=== PATIENT | female | born 1945 | race Caucasian/White ===

== ENCOUNTER 2017-07-03 11:19 | Emergency (ER) | payer MEDICARE, BC ==
[~2017-07-03] VITALS: Ht 160 cm; Wt 108.9 kg
[~2017-07-03 11:19] MED LIST: BENICAR HCT 401 EAC1 ORAL; BETAPACE80 MG PO; JANUMET 50-5001 EACH ORAL; LANSOPRAZOLE30 MG ORAL; SIMVASTATIN40 MG ORAL; SPIRONOLACTONE25 MG PO; ZOLOFT100 MG ORAL
[2017-07-03] MEDS ORDERED: Ipratropium 0.02% Inh Soln 2.5ml UD HHN ONE (12:30)
--- NOTE | 2017-07-03 12:31 | Emergency Room Report ---
History of Present Illness General Chief Complaint: Upper Respiratory Illness Source: Patient (Gaurav Roche M.D.) Present Illness HPI 71-year-old female with history of hypertension, long history of exposure to smoke however herself with an active smoker,, p/w SOB and cough for 5 days. SOB occurs both at rest and on exertion. + productive cough with sputum, yellow , denies chest pain. Patient does not have nebulizer at home. No recent steroid use. Denies fever, chills. Denies sick contacts or recent travel. (Gaurav Roche M.D.) Allergies: Coded Allergies: CODEINE (Verified Allergy, Unknown, 07/03/17) Patient History Past Medical History: see triage record Past Surgical History: none Pertinent Family History: none Reviewed Nursing Documentation: PMH: Agreed, PSxH: Agreed (Gaurav Roche M.D. ) Nursing Documentation-PMH Past Medical History: No History, Except For Hx Cardiac Problems: Yes - fibromyalgia, ablation due to A-fib Hx Hypertension: Yes Hx Pacemaker: No Hx Asthma: No Hx COPD: No Hx Diabetes: Yes Hx Cancer: No Hx Gastrointestinal Problems: Yes - GERD Hx Dialysis: No History Of Psychiatric Problem: No Hx Neurological Problems: No Hx Cerebrovascular Accident: No Hx Seizures: No (Gaurav Roche M.D.) Review of Systems All Other Systems: negative except mentioned in HPI (Gaurav Roche M.D.) Physical Exam Vital Signs Date Time Temp Pulse Resp B/P (MAP) Pulse Ox O2 Delivery O2 Flow Rate FiO2 07/03/17 11:24 98.4 69 20 116/70 99 Room Air Sp02 EP Interpretation: reviewed, normal General Appearance: alert, GCS 15, moderate distress, other - sob but speaking in complete sentences Head: normocephalic, atraumatic Eyes: bilateral eye normal inspection, bilateral eye PERRL, bilateral eye EOMI ENT: normal ENT inspection, normal pharynx, normal voice, moist mucus membranes Neck: normal inspection, full range of motion, supple Respiratory: other - expiratory wheezing b/l Cardiovascular #1: normal inspection, regular rate, rhythm, normal capillary refill Cardiovascular #2: 2+ radial (R), 2+ radial (L) Gastrointestinal: normal inspection, non tender, soft, non-distended, no guarding Musculoskeletal: normal inspection, back normal, normal range of motion, non- tender Neurologic: normal inspection, alert, oriented x3, responsive, motor strength/ tone normal, sensory intact, normal gait, speech normal Psychiatric: normal inspection, judgement/insight normal, memory normal Skin: normal inspection, normal color, no rash, warm/dry, well hydrated, normal turgor (Gaurav Roche M.D.) Medical Decision Making Diagnostic Impression: Primary Impression: Cough Additional Impressions: Pneumonia Wheezing ER Course 71-year-old female with cough and shortness of breath DDX: COPD (undiagnosed but has a history of long smoking exposure), ACS, pneumonia Plan: IV access, monitoring and evaluation advisor, O2 nasal cannula, EKG, CXR obtain basic labs including blood gas, troponin, Duonebs, steroids, antibiotics ER Course: Patient's respiratory status has been closely monitored in the ED. Patient has been treated with combivent x 3, steroids, antibiotics. Repeat lung exam improved CXR possible R sided infiltrate levaquin given patient doing well, ambulating around ED, not sob, able to tolerate PO first trop 0.056 Disposition: Signed out patient to Dr Johnston -pending 2nd trop, if negative DC home -levaquin / albuterol nebulizer / fu with pmd Please note that this Emergency Department Report was dictated using [employer] tile setter technology software, occasionally this can lead to erroneous entry secondary to interpretation by the dictation equipment. . EKG Diagnostic Results EP Interpretation: Yes Rate: normal Rhythm: NSR ST Segments: Incomplete right bundle branch block, T wave inversion in aVL ASA given to patient: No Rhythm Strip EP Interpretation: Yes Rate: 63 Rhythm: NSR, no PVCs, no ectopy Chest X-ray CXR: Ordered: Yes 1 view Indication: Chest pain EP interpretation: Yes Interpretation: Right-sided infiltrate Impression: Right-sided pneumonia Electronically signed by Gaurav Roche MD Laboratory Tests Test 07/03/17 13:33 07/03/17 15:34 White Blood Count 6.9 K/UL (4.8-10.8) Red Blood Count 4.27 M/UL (4.20-5.40) Hemoglobin 12.8 G/DL (12.0-16.0) Hematocrit 40.1 % (37.0-47.0) Mean Corpuscular Volume 94 FL (80-99) Mean Corpuscular Hemoglobin 29.9 PG (27.0-31.0) Mean Corpuscular Hemoglobin Concent 31.8 G/DL (32.0-36.0) L Red Cell Distribution Width 12.6 % (11.6-14.8) Platelet Count 165 K/UL (150-450) Mean Platelet Volume 7.0 FL (6.5-10.1) Neutrophils (%) (Auto) 63.1 % (45.0-75.0) Lymphocytes (%) (Auto) 22.6 % (20.0-45.0) Monocytes (%) (Auto) 9.7 % (1.0-10.0) Eosinophils (%) (Auto) 3.7 % (0.0-3.0) H Basophils (%) (Auto) 0.9 % (0.0-2.0) Urine Color Pale yellow Urine Appearance Clear Urine pH 6 (4.5-8.0) Urine Specific [place] 1.015 (1.005-1.035) Urine Protein Negative (NEGATIVE) Urine Glucose (UA) Negative (NEGATIVE) Urine Ketones Negative (NEGATIVE) Urine Occult Blood Negative (NEGATIVE) Urine Nitrite Negative (NEGATIVE) Urine Bilirubin Negative (NEGATIVE) Urine Urobilinogen Normal MG/DL (0.0-1.0) Urine Leukocyte Esterase Negative (NEGATIVE) Sodium Level 138 MMOL/L (136-145) Potassium Level 4.0 MMOL/L (3.5-5.1) Chloride Level 101 MMOL/L (98-107) Carbon Dioxide Level 27 MMOL/L (21-32) Anion Gap 10 mmol/L (5-15) Blood Urea Nitrogen 13 mg/dL (7-18) Creatinine 0.6 MG/DL (0.55-1.30) Estimate Glomerular Filtration Rate mL/min (>60) Glucose Level 150 MG/DL (74-106) H Calcium Level 8.8 MG/DL (8.5-10.1) Total Bilirubin 0.4 MG/DL (0.2-1.0) Aspartate Amino Transferase (AST) 20 U/L (15-37) Alanine Aminotransferase (ALT) 28 U/L (12-78) Alkaline Phosphatase 54 U/L (46-116) Troponin I 0.057 ng/mL (0.000-0.056) 0.000 ng/mL (0.000-0.056) Pro-B-Type Natriuretic Peptide 147 pg/mL (0-125) H Total Protein 7.0 G/DL (6.4-8.2) Albumin 3.5 G/DL (3.4-5.0) Globulin 3.5 g/dL Albumin/Globulin Ratio 1.0 (1.0-2.7) (Gaurav Roche M.D.) ER Course Received signout from Dr Roche to check 2nd troponin First troponin >0.05 Patient denies chest pain, SOB, abd pain, nausea/vomiting has had cough for 5 days Tx for clinical PNA by Dr Roche - Rx provided 2nd troponin is 0. doubt ACS or NSTEMI See her initial note/evaluation for interpretation of labs, CXR, ECG Will DC home (MAYRA JOHNSTON M.D.) EKG Diagnostic Results Rate: normal Rhythm: NSR ST Segments: no acute changes ASA given to the pt in ED: No (MAYRA JOHNSTON M.D.) Last Vital Signs Date Time Temp Pulse Resp B/P (MAP) Pulse Ox O2 Delivery O2 Flow Rate FiO2 07/03/17 11:24 98.4 69 20 116/70 99 Room Air (Gaurav Roche M.D.) Status: improved (MAYRA JOHNSTON M.D.) Disposition: HOME, SELF-CARE Scripts Nebulizer Accessories (A.I.R.S. NEBULIZER) 1 Each Kit EACH , #1 0 Refills Prov: Gaurav Roche M.D. 07/03/17 Albuterol Sulfate* (ALBUTEROL SULFATE HHN*) 2.5 Mg/3 Ml Vial.neb 2.5 MG HHN Q4H Y for Shortness of Breath, #25 VIAL 0 Refills Prov: Gaurav Roche M.D. 07/03/17 Levofloxacin* (LEVAQUIN*) 750 Mg Tablet 750 MG ORAL DAILY for 7 Days, #7 TAB 0 Refills Prov: Gaurav Roche M.D. 07/03/17 Gaurav Roche M.D. Jul 03, 2017 12:31 MAYRA JOHNSTON M.D. Jul 03, 2017 16:20
[2017-07-03] MEDS: Albuterol ud Inhalation HHN SCH ×3 (13:17→13:22)
[2017-07-03] MEDS ORDERED: A.I.R.S. NEBUL1 EACH MC (13:28)
[2017-07-03] MEDS ORDERED: LEVAQUIN750 MG ORAL (13:28)
[2017-07-03] MEDS ORDERED: ALBUTEROL2.5 MG/3 M HHN (13:28)
[2017-07-03 13:59] VITALS: BP 132/52
[2017-07-03 14:06] LABS: BASOPHILS % (AUTO) 0.9 % (0.0-2.0); EOSINOPHILS % (AUTO) 3.7 % (0.0-3.0); LYMPHOCYTES % (AUTO) 22.6 % (20.0-45.0); MEAN CORPUSCULAR HEMOGLOBIN 29.9 PG (27.0-31.0); MEAN CORPUSCULAR HGB CONC 31.8 G/DL (32.0-36.0); MEAN CORPUSCULAR VOLUME 94 FL (80-99); MONOCYTES % (AUTO) 9.7 % (1.0-10.0); NEUTROPHILS % (AUTO) 63.1 % (45.0-75.0); PLATELET COUNT 165 K/UL (150-450); RED BLOOD COUNT 4.27 M/UL (4.20-5.40); RED CELL DISTRIBUTION WIDTH 12.6 % (11.6-14.8); WHITE BLOOD COUNT 6.9 K/UL (4.8-10.8)
[2017-07-03 14:12] LABS: APPEARANCE,URINE CLEAR; KETONES,URINE NEGATIVE (NEGATIVE); LEUKOCYTE ESTERASE ,URINE NEGATIVE (NEGATIVE); NITRITE,URINE NEGATIVE (NEGATIVE); PH,URINE 6 (4.5-8.0); PROTEIN,URINE NEGATIVE (NEGATIVE); UROBILINOGEN,URINE NORMAL MG/DL (0.0-1.0)
[2017-07-03 14:37] LABS: ANION GAP 10 mmol/L (5-15); CALCIUM 8.8 MG/DL (8.5-10.1); CARBON DIOXIDE 27 MMOL/L (21-32); CHLORIDE 101 MMOL/L (98-107); CREATININE 0.6 MG/DL (0.55-1.30); SODIUM 138 MMOL/L (136-145)
[2017-07-03 14:47] LABS: ALANINE AMINOTRANSFERASE 28 U/L (12-78); ASPARTATE AMINO TRANSFERASE 20 U/L (15-37)
--- NOTE | 2017-07-03 15:24 | Diagnostic Imaging Report ---
Indication: SOB Technique: One view of the chest Comparison: 07/11/2009 Findings: The heart is enlarged. The lungs and pleural spaces are clear. No significant change Impression: Cardiomegaly. No acute process
[2017-07-03 15:56] VITALS: BP 113/54
[2017-07-03 16:37] VITALS: BP 116/51
--- NOTE | 2017-07-07 14:57 | Cardiology Report ---
APPROVED REPORT EKG Measurement Heart [id number] Normal sinus rhythm Incomplete right bundle branch block Borderline ECG
== END 2017-07-03 16:43 | disposition home or self-care (01) ==
LOC: EMR 12:35
DX: J18.9 Pneumonia, unspecified organism (principal); R06.2 Wheezing; I10 Essential (primary) hypertension; E11.9 Type 2 diabetes mellitus without complications; M79.7 Fibromyalgia; K21.9 Gastro-esophageal reflux disease without esophagitis; Z88.6 Allergy status to analgesic agent
CPT/HCPCS: 36415; 71010; 80053; 81003; 83880; 84484; 85025; 93005; 94640; 94664; 96374; 99284; J1956